=== PATIENT | female | born 1965 | race African-American/Black ===

== ENCOUNTER → 2017-12-09 | Outpatient (CLI) | payer OTHER ==
[2017-03-11 12:24] VITALS: BP 150/77
[~2017-12-09] MED LIST: DICL50TA4 PO; DICY10SO2 PO; ESTR0.5T PO; GABA-586 PO; GLAT40SY SQ; OLME20TA17 PO; OMEP40CA5 PO
--- NOTE | 2017-12-09 14:13 | KCIC ---
Bone densitometry 12/09/2017 11:00 AM Indication: Osteoporosis, loss of height Comparison Study: None. Discussion: Bone Densitometry was performed with dual photon absorption of the lumbar spine and proximal femurs. Lumbar Spine: Bone average density is 0.872g/cm2 for L1-L4. T-Score is -1.6. Left femoral neck: Bone average density is 0.960 g/cm2. T-Score is 0.1. IMPRESSION: Osteopenia Note: Definitions established by the World Health Organization: Normal: T-score is -1.0 or above. Osteopenia: T-score is between -1.0 and -2.5. Osteoporosis: T-score is -2.5 or below. Electronically signed by: Jagdeep Bhatt MD (12/09/2017 2:09 PM) [id number]
--- NOTE | 2017-12-11 12:22 | KCIC ---
EXAM: Bilateral digital screening mammogram with tomosynthesis. HISTORY: 52-year-old female presents for screening mammography. TECHNIQUE: Full-field digital craniocaudal and mediolateral oblique 2D and 3D tomosynthesis images of both breasts are obtained for evaluation. Computer aided detection with iRezQD software version 9.3 was applied. COMPARISON: 01/30/2014 BREAST PARENCHYMAL DENSITY: Level B - Scattered fibroglandular densities. FINDINGS: There is no new suspicious mass, microcalcification or region of architectural distortion. IMPRESSION: BI-RADS Category 2: Benign finding(s). RECOMMENDATION: Annual mammography is recommended. If your mammogram demonstrates that you have dense breast tissue, which could hide abnormalities, and if you have other risk factors for breast cancer that have been identified, you might benefit from supplemental screening tests that may be suggested by your ordering physician. Dense breast tissue, in and of itself, is a relatively common condition. This information is not provided to cause undue concern, but rather to raise your awareness and to promote discussion with your physician regarding the presence of other risk factors, in addition to dense breast tissue. A report of your mammography results will be sent to you and your physician. You should contact your physician if you have any questions or concerns regarding this report. Mammography is a sensitive method for finding small breast cancers, but it does not detect them all and is not a substitute for careful clinical examination. A negative mammogram does not negate a clinically suspicious finding and should not result in delay in biopsying a clinically suspicious abnormality. PQRS compliance statement - Patient information was entered into a reminder system with a target due date for the next mammogram. "Our facility is accredited by the [employer] Mammography [employer]." Electronically signed by: Colleen Fair MD (12/11/2017 12:19 PM) [id number]
== END | disposition home or self-care (01) ==
LOC: KCIC DEXA 10:51
PROVIDERS: ATTEND Physician Assistant Surgical
DX: Z12.31 Encounter for screening mammogram for malignant neoplasm of breast (principal); M81.0 Age-related osteoporosis without current pathological fracture; M85.89 Other specified disorders of bone density and structure, multiple sites; Z78.0 Asymptomatic menopausal state
CPT/HCPCS: 77063; 77067; 77080

== ENCOUNTER → 2019-05-13 | Outpatient (CLI) | payer MEDICARE ==
[2017-03-11 12:24] VITALS: BP 150/77
[~2019-05-13] MED LIST changes: -GABA-586 PO; +GABA300C18 PO; +IOHEXOL 240 MG/ML 50ML VIAL. PO ONE; +IOHEXOL 300 MG/ML 100ML VIAL. IV ONE; +OMEP40CA45 PO; -OMEP40CA5 PO
--- NOTE | 2019-05-13 15:59 | KCIC ---
EXAM: CT Abdomen and Pelvis with IV contrast INDICATION: Vaginal bleeding and pain for one month. TECHNIQUE: Multi-detector row CT images were acquired from the lung bases through the abdomen and pelvis with the use of IV contrast. Sagittal and coronal images were acquired from the transaxial data. All CT scans performed at this facility utilize dose optimization techniques as appropriate to the exam, including the following: Automated exposure control and adjustment of the mA and/or KV according to patient size (this includes techniques or standardized protocols for targeted exams where dose is indication/reason for exam). IV CONTRAST: Administered ORAL CONTRAST: Administered COMPARISON: No relevant comparisons currently available. FINDINGS: LOWER CHEST: Unremarkable LIVER: Mild hepatomegaly, measuring 19 cm in cranial caudal extent. BILIARY SYSTEM: Gallbladder is unremarkable. Bile ducts are not dilated. PANCREAS: Unremarkable SPLEEN: Unremarkable ADRENALS: Unremarkable KIDNEYS & URETERS: Unremarkable BLADDER: Incompletely distention but diffuse urinary bladder wall thickening with mild perivesical soft tissue stranding. REPRODUCTIVE ORGANS: Surgical changes from a previous hysterectomy are present but there is a ring-enhancing structure at the vaginal cuff measuring 1.6 x 1.5 x 1.8 cm. GASTROINTESTINAL: Stomach and small bowel are unremarkable. The large bowel however demonstrates extensive diverticulosis most conspicuous in the rectosigmoid colon. On the sagittal reformatted images, there is certain portions of the rectosigmoid colon that have lost their tissue planes between the vaginal cuff and the large bowel (for example, image 33 of 67 on sagittal series 5). The appendix is normal. MESENTERY/PERITONEUM/RETROPERITONEUM: Trace pelvic free fluid. No free air. 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 Electronically signed by: Consuelo Orellana MD (05/13/2019 3:56 PM) [id number]
== END | disposition home or self-care (01) ==
LOC: KCIC CT 10:09
PROVIDERS: ATTEND Obstetrics & Gynecology
DX: K57.30 Diverticulosis of large intestine without perforation or abscess without bleeding (principal); R16.0 Hepatomegaly, not elsewhere classified; N93.9 Abnormal uterine and vaginal bleeding, unspecified; R10.2 Pelvic and perineal pain; Z90.710 Acquired absence of both cervix and uterus
CPT/HCPCS: 74177; Q9966; Q9967

== ENCOUNTER → 2020-06-07 | Outpatient (CLI) | payer MEDICARE ==
[2017-03-11 12:24] VITALS: BP 150/77
[~2020-06-07] MED LIST changes: -IOHEXOL 240 MG/ML 50ML VIAL. PO ONE; -IOHEXOL 300 MG/ML 100ML VIAL. IV ONE
--- NOTE | 2020-06-07 13:01 | KCIC ---
Bilateral digital screening mammograms with 3-D tomosynthesis: Reason for examination: Routine screening. Comparison is made to previous studies dated 12/09/2017 and 01/30/2014. Bilateral mammograms in CC and oblique projections were obtained with 2-D imaging and 3-D tomosynthes is imaging on a [employer] Inspiration unit and reviewed on the workstation. Interpretation was made with the benefit of CAD. The skin and nipples show no abnormalities. No abnormal axillary lymph nodes are seen. The breast par enchyma is predominantly fatty. (Breast density: Category A.) There continues to be a small nodular p arenchymal asymmetry in the left breast which is seen best on CC view but is stable. There are no new dominant masses, suspicious calcifications or architectural distortion. Impression: No evidence of malignancy. Recommend routine screening. BI-RAD Category 2: Benign. "Our facility is accredited by the [employer] Mammography Program." This patient's information has been entered into a reminder system for the patient to be notified wit h the results of her examination and a target date for the next mammogram. Electronically signed by: Berenice Casey MD (06/07/2020 12:59 PM) [id number]
== END ==
LOC: KCIC MAMMO 10:20
PROVIDERS: ATTEND Family Medicine
DX: Z12.31 Encounter for screening mammogram for malignant neoplasm of breast (principal)
CPT/HCPCS: 77063; 77067

== ENCOUNTER 2021-06-28 22:16 | Emergency (ER) | payer MEDICARE ==
[~2021-06-28] VITALS: Ht 154.9 cm; Wt 95.5 kg
[~2021-06-28 22:16] MED LIST changes: -OMEP40CA45 PO; +OMEP40CA7 PO
[2021-06-29] MEDS ORDERED: methylPREDNISolone SOD SUCC PF 125 MG/2 ML VIAL. IM ONE (00:15)
[2021-06-29] MEDS ORDERED: KETOROLAC 60 MG/2 ML VIAL. IM ONE (00:15)
[2021-06-29] MEDS ORDERED: NAPR-682 PO (00:23)
[2021-06-29] MEDS ORDERED: PRED20TA PO (00:23)
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
[2021-06-29 00:51] VITALS: BP 189/90
--- NOTE | 2021-06-29 02:48 | RAD ---
Study: CERVICAL SPINE 2-3V Indication: Neck pain. Comparison: None. Findings: Mild cervical dextrocurvature. Straightening of cervical lordosis. Millimetric retrolisthesis of C4 o n C5. Discogenic arthrosis with disc space height loss from C4 to C5 through C6-C7. Scattered facet a rthrosis. Multilevel uncovertebral joint hypertrophy. No acute fracture is identified. Normal thickness of the prevertebral soft tissues. Normal atlantodental interface. The partially asse ssed dens is intact. Impression: Collectively moderate degenerative changes of the cervical spine greatest from C4-C5 through C6-C7. N o acute radiographic abnormality. Electronically signed by: RACHNA ALLISON MD (06/28/2021 11:30 PM) [facility]
== END 2021-06-29 00:52 | disposition home or self-care (01) ==
LOC: ER 22:16
DX: M54.12 Radiculopathy, cervical region (principal); M25.512 Pain in left shoulder; M79.642 Pain in left hand
CPT/HCPCS: 72040; 96372; 99284; J1885; J2930